=== PATIENT | female | born 1985 | race Caucasian/White ===

== ENCOUNTER 2017-10-03 20:53 | Emergency (ER) | payer BC, OTHER ==
[2017-10-03] MEDS: NICARDipine HCL 30 MG CAPSULE PO (21:36)
[2017-10-03] MEDS: IBUPROFEN 800 MG TAB PO (23:14)
== END 2017-10-03 23:25 | disposition home or self-care (01) ==
LOC: E/R 20:53
DX: I16.0 Hypertensive urgency (principal); I10 Essential (primary) hypertension; R40.2142 Coma scale, eyes open, spontaneous, at arrival to emergency department; R40.2252 Coma scale, best verbal response, oriented, at arrival to emergency department; R40.2362 Coma scale, best motor response, obeys commands, at arrival to emergency department
CPT/HCPCS: 70450; 99284-25

== ENCOUNTER 2019-03-18 16:07 | Emergency (ER) | payer OTHER, BC | END 2019-03-18 19:16 | disposition home or self-care (01) | LOC: FTE 19:16 | DX: I10 Essential (primary) hypertension (principal); Z87.891 Personal history of nicotine dependence | CPT/HCPCS: 99283; Z7502 ==